=== PATIENT | female | born 1980 | race Caucasian/White ===

== ENCOUNTER → 2016-12-16 | Outpatient (CLI) | payer OTHER ==
[~2016-12-16] MED LIST: DOCU-94 PO; FLNCV PO; ONDA4TAB7 SL
== END ==
LOC: C.PAPS 17:28
PROVIDERS: ATTEND Obstetrics & Gynecology
DX: Z12.4 Encounter for screening for malignant neoplasm of cervix (principal)

== ENCOUNTER 2021-07-12 00:50 | Inpatient (IN) ==
--- NOTE | 2021-07-12 01:15 | Emergency Department Note ---
History of Present Illness General Chief complaint: Flank Pain Stated complaint: ACUTE APPENDICITIS Time Seen by Provider: 07/12/21 00:57 History of Present Illness Maximum Pain Intensity: 6 This is a 40-year-old female presenting to the emergency department for evaluation of acute appendicitis. The patient states that she has had 22 hours of abdominal pain. The patient's discomfort was initially periumbilical but has radiated now into the right lower quadrant. She did go to [facility] ER where blood work was performed along with CT scan. CT scan was positive for acute appendicitis with an 8 mm appendix with periappendiceal inflammation according to the radiology read provided by the patient. The patient does bring a disc of her imaging with her as well as some of her lab work from [place]. I did reach out to [facility] ER, and spoke with the charge nurse. Evidently the patient did have acute appendicitis and as that facility was working to get transport the patient became upset about the possible cost of transportation. [facility] does not have an on-call surgeon tonight, and they did reach out to both [facility] and [facility], each of which may have been able to take the patient to the OR later in the morning, but could not immediately except transf er. The patient did not want to sit in [facility], nor did she want to go to either of these hospitals by ambulance. The patient elected to leave AGAINST MEDICAL ADVICE and drive to this facility for evaluation. There is significant snowstorm occurring at this time tonight with 12+ inches of snow, and despite this the patient drove to this facility skipping over closer hospitals. She rates her current discomfort a 6/10. She did receive Rocephin and Toradol at [place]. She is not vaccinated against COVID. She does have a past history of section. She has not had food in greater than 24 hours. She did have liquids approximately 10 hours ago. Home Medications Medication Instructions Recorded Confirmed Type multivitamin 1 tab PO DAILY 07/12/21 07/12/21 History Allergies Allergy/AdvReac Type Severity Reaction Status Date / Time No Known Allergies Allergy _ Verified 07/12/21 01:24 Past Med/Surg History Medical History No chronic diseases present Surgical History History of section Social History Smoking Status: Former smoker Preferred Language: Jordanian Feels Safe at Home: Yes Review of Systems A total of 10 systems reviewed and were otherwise negative Physical Exam Vital Signs Vital Signs - 24 hr 07/12/21 00:53 07/12/21 02:00 Temperature 37.2 C Temperature Source Temporal Artery Scan Pulse Rate 121 H Pulse Rate [Left Finger] 87 Pulse Rhythm [Left Finger] Regular Pulse Strength [Left Finger] Normal Respiratory Rate 20 20 Respiratory Effort / Characteristics Non-Labored Spontaneous Non-Labored Respiratory Depth Normal Normal Blood Pressure 158/87 H Blood Pressure [Right Arm] 145/92 H Blood Pressure Mean 110 Blood Pressure Mean [Right Arm] 109 Blood Pressure Position [Right Arm] Sitting Pulse Oximetry 96 97 Oxygen Delivery Method Room Air Room Air Sepsis New/Unexplained Change in Mental Status N/A Sepsis Action Taken by Nursing No Action Required VITALS: Vitals are noted on the nurse's note and reviewed by myself. Vital signs stable. GENERAL: Well-developed, well-nourished, white female, who is in no acute distress and resting comfortably. Patient is cooperative with the examination. HEAD: Normocephalic atraumatic. NECK: Supple without nuchal rigidity. No lymphadenopathy. No thyromegaly. Cervical spine is nontender. HEART: Regular rate and rhythm without murmurs gallops or rubs. LUNGS: Clear to auscultation bilaterally without wheezes, rales or rhonchi. No retractions or accessory muscle use. ABDOMEN: Positive normal bowel sounds x 4. Soft with mild right-sided abdominal tenderness. No rebound or guarding. No evidence of peritonitis. MUSCULOSKELETAL: No muscle atrophy, erythema, or edema noted. Full range of motion in all extremities. Course Administered Medications Acetaminophen (Ofirmev) 1,000 mg in 100 mls @ 400 mls/hr IV Q8H PRN PRN Reason: pain Stop: 07/15/21 02:21 Last Admin: 07/12/21 04:28 Dose: 400 mls/hr Documented by: [id number] Potassium Chloride 10 meq/ (Lactated Ringer's) 1,005 mls @ 75 mls/hr IV .[id number] KIRK Stop: 08/11/21 02:29 Last Admin: 07/12/21 03:59 Dose: 75 mls/hr Documented by: [id number] Morphine Sulfate (Morphine Sulfate 4 Mg/Ml 1 Ml Carp\Vial) 3 mg IV Q3H PRN PRN Reason: Pain Stop: 07/26/21 02:21 Last Admin: 07/12/21 02:34 Dose: 3 mg Documented by: [id number] Discontinued Medications Sodium Chloride (Nss 1000ml) 1,000 mls @ 999 mls/hr IV .[id number] KIRK Stop: 07/12/21 02:30 Last Infusion: 07/12/21 03:04 Dose: 0 mls/hr Documented by: [id number] Admin: 07/12/21 01:59 Dose: 999 mls/hr Documented by: [id number] Piperacillin Sod/Tazobactam Sod (Zosyn) 4.5 gm in 120 mls @ 240 mls/hr IV NOW ONE Stop: 07/12/21 01:54 Last Infusion: 07/12/21 02:51 Dose: 0 mls/hr Documented by: [id number] Admin: 07/12/21 01:59 Dose: 240 mls/hr Documented by: [id number] Medical Decision Making Differential Diagnosis Differential diagnosis: Etiologies such as biliary colic, cholecystitis, hepatitis, pancreatitis, cardia c disease, pancreatitis, gastritis, peptic ulcer disease, appendicitis, cystitis, diverticulitis, mesenteric ischemia, inflammatory bowel disease, ileus, bowel obstruction, testicular/adnexal torsion, aortic pathology, shingles, as well as others were considered Laboratory Data Result diagrams: 07/12/21 01:00 07/12/21 01:00 Lab Results 07/12/21 07/12/21 07/12/21 Range/Units 01:00 01:00 01:10 WBC 10.99 H (4.8-10.8) K/uL RBC 4.52 (4.2-5.4) M/uL Hgb 13.7 (12.0-16.0) g/dL Hct 40.2 (37-47) % MCV 88.9 (80-100) fL MCH 30.3 (25-34) pg MCHC 34.1 (32-36) g/dL RDW Std Deviation 43.7 (36.4-46.3) fL RDW Coeff of Bro 13.4 (11.5-14.5) % Plt Count 268 (130-400) K/uL MPV 11.2 H (7.4-10.4) fL Immature Gran % (Auto) 0.1 % Neut % (Auto) 76.9 % Lymph % (Auto) 13.3 % [place] % (Auto) 9.5 % Eos % (Auto) 0.1 % Baso % (Auto) 0.1 % Neut # (Auto) 8.46 H (1.4-6.5) K/uL Lymph # (Auto) 1.46 (1.2-3.4) K/uL [place] # (Auto) 1.04 H (0.11-0.59) K/uL Eos # (Auto) 0.01 (0-0.5) K/uL Baso # (Auto) 0.01 (0-0.2) K/uL Immature Gran # (Auto) 0.01 (0.00-0.02) K/uL Sodium 137 (136-145) mmol/L Potassium 3.4 L (3.5-5.1) mmol/L Chloride 102 (98-107) mmol/L Carbon Dioxide 25 (21-32) mmol/L Anion Gap 10 (3-11) BUN 9 (6-23) mg/dl Creatinine 0.57 L (0.6-1.2) mg/dl Est Cr Clr Drug Dosing 141.6 ml/min Est GFR ( Amer) 133.5 ml/min Est GFR (Non-Af Amer) 115.1 ml/min BUN/Creatinine Ratio 15.8 (10-20) Glucose 135 H (70-99(Fasting)) mg/dl Calcium 8.6 (8.5-10.1) mg/dl Total Bilirubin 0.5 (0.2-1.0) mg/dl AST 10 L (13-39) U/L ALT 11 (7-52) U/L Alkaline Phosphatase 57 (34-104) U/L Total Protein 7.5 (6.0-8.3) gm/dl Albumin 4.3 (3.4-5.0) gm/dl Globulin 3.2 (2.5-4.0) gm/dl Albumin/Globulin Ratio 1.3 (0.9-2) Lipase 11 (11-82) U/L HCG, Qual (Negative) SARS-CoV-2, RNA, NAAT POSITIVE A* (NEGATIVE) 07/12/21 Range/Units 01:10 WBC (4.8-10.8) K/uL RBC (4.2-5.4) M/uL Hgb (12.0-16.0) g/dL Hct (37-47) % MCV (80-100) fL MCH (25-34) pg MCHC (32-36) g/dL RDW Std Deviation (36.4-46.3) fL RDW Coeff of Bro (11.5-14.5) % Plt Count (130-400) K/uL MPV (7.4-10.4) fL Immature Gran % (Auto) % Neut % (Auto) % Lymph % (Auto) % [place] % (Auto) % Eos % (Auto) % Baso % (Auto) % Neut # (Auto) (1.4-6.5) K/uL Lymph # (Auto) (1.2-3.4) K/uL [place] # (Auto) (0.11-0.59) K/uL Eos # (Auto) (0-0.5) K/uL Baso # (Auto) (0-0.2) K/uL Immature Gran # (Auto) (0.00-0.02) K/uL Sodium (136-145) mmol/L Potassium (3.5-5.1) mmol/L Chloride (98-107) mmol/L Carbon Dioxide (21-32) mmol/L Anion Gap (3-11) BUN (6-23) mg/dl Creatinine (0.6-1.2) mg/dl Est Cr Clr Drug Dosing ml/min Est GFR ( Amer) ml/min Est GFR (Non-Af Amer) ml/min BUN/Creatinine Ratio (10-20) Glucose (70-99(Fasting)) mg/dl Calcium (8.5-10.1) mg/dl Total Bilirubin (0.2-1.0) mg/dl AST (13-39) U/L ALT (7-52) U/L Alkaline Phosphatase (34-104) U/L Total Protein (6.0-8.3) gm/dl Albumin (3.4-5.0) gm/dl Globulin (2.5-4.0) gm/dl Albumin/Globulin Ratio (0.9-2) Lipase (11-82) U/L HCG, Qual Negative (Negative) SARS-CoV-2, RNA, NAAT (NEGATIVE) MDM Narrative Physical exam and history were performed. Nursing notes, EMR, and Medication List were personally reviewed. Patient appears to have acute appendicitis on imaging from another hospital. The patient did leave [facility] emergency department AGAINST MEDICAL ADVICE to come to this facility. IV access was established and labs were obtained. She was made n.p.o. and gently hydrated in the ER. She did receive Rocephin and Toradol while at [place]. COVID swab was performed. The patient's blood work is as above and was reviewed. She does not have a significantly elevated white blood cell count, gross anemia, bandemia, or significant electrolyte imbalance. COVID swab is POSITIVE. The case was discussed with the on-call surgical team, who did evaluate the patient here in the emergency department. Please see their dictation for further patient course, plan, disposition. The chart was completed utilizing [employer] Speech Voice Recognition Software. Grammatical errors, random word insertions, pronoun errors, and incomplete sentences are an occasional consequence of this system due to software limitations, ambient noise, and hardware issues. Any formal questions or concerns about the content, text, or information contained within the body of this dictation should be directly addressed to the provider for clarification. . Impression & Plan Acute appendicitis, COVID-19 Discharge Plan Visit Data Chief Complaint: Flank Pain Stated Complaint: ACUTE APPENDICITIS ED Provider: Abhay Aguilar ED Midlevel Provider: Néstor Head Discharge Problem: Acute appendicitis, COVID-19 Patient Disposition: Being Evaluated by Surgeon Discharge Instructions Interventions: ED Discharge Assessment Last Done: 07/12/21 03:02
[2021-07-12 01:22] LABS: Basophils # (auto) 0.01 K/uL (0-0.2); Basophils % (auto) 0.1 %; Eosinophils # (auto) 0.01 K/uL (0-0.5); Eosinophils % (auto) 0.1 %; Hematocrit (blood only) 40.2 % (37-47); Hemoglobin 13.7 g/dL (12.0-16.0); Immature Granulocytes # (auto) 0.01 K/uL (0.00-0.02); Immature Granulocytes % (auto) 0.1 %; Lymphocytes # (auto) 1.46 K/uL (1.2-3.4); Lymphocytes % (auto) 13.3 %; Mean Corpuscular Hemoglobin 30.3 pg (25-34); Mean Corpuscular Hgb Conc 34.1 g/dL (32-36); Mean Corpuscular Volume 88.9 fL (80-100); Mean Platelet Volume 11.2 fL (7.4-10.4); Monocytes # (auto) 1.04 K/uL (0.11-0.59); Monocytes % (auto) 9.5 %; Neutrophils # (auto) 8.46 K/uL (1.4-6.5); Neutrophils % (auto) 76.9 %; Platelet Count 268 K/uL (130-400); RDW Coefficient of Variation 13.4 % (11.5-14.5); RDW Standard Deviation 43.7 fL (36.4-46.3); Red Blood Count 4.52 M/uL (4.2-5.4); White Blood Count 10.99 K/uL (4.8-10.8)
[2021-07-12] MEDS ORDERED: PIPERACILL/TAZOBAC CONSULT ACTIVE PRN ×2 (01:25→03:03)
[2021-07-12] MEDS ORDERED: PIPERACILLIN/TAZOBACTAM 4.5 GM/120 ML BAG IV ONE (01:25)
[2021-07-12] MEDS ORDERED: SODIUM CHLORIDE 0.9% 1000ML 1,000 ML IV SCH (01:30)
[2021-07-12 01:39] LABS: Albumin Globulin Ratio 1.3 (0.9-2); Albumin Level 4.3 gm/dl (3.4-5.0); BUN Creatinine Ratio 15.8 (10-20); Bilirubin,Total 0.5 mg/dl (0.2-1.0); Calcium 8.6 mg/dl (8.5-10.1); Creatinine Clr Calc Pharmacy 141.6 ml/min; Est GFR (African American) 133.5 ml/min; Est GFR (Non-African American) 115.1 ml/min; Globulin 3.2 gm/dl (2.5-4.0); Potassium 3.4 mmol/L (3.5-5.1); Total Protein 7.5 gm/dl (6.0-8.3)
[2021-07-12 01:47] LABS: Pregnancy Test, Serum Negative (Negative)
--- NOTE | 2021-07-12 02:17 | History & Physical Report ---
Date of Service July 12, 2021 Assessment & Plan (1) Acute appendicitis: Plan: Due to the patient's clinical presentation and imaging findings at [facility] she will be admitted to the hospital and we will proceed as follows: We will implement n.p.o. status We will hydrate gently with IV fluids supplementing her potassium Antiemetics will be provided Analgesics will be provided We will maintain the patient on antibiotics. The treating clinician emergency department has ordered a dose of Zosyn and we will continue this medicine Due to the patient's positive COVID status we will order appropriate isolation precautions Due to acute appendicitis we will plan on performing an appendectomy. I have consented the patient for laparoscopic, possible open appendectomy. I have outlined the risks, benefits, and alternatives with the patient and she wished to proceed. Additional recommendations to be forthcoming based on operative findings as well as the patient's postoperative course Will utilize SCDs for DVT prevention. We will avoid chemical means to the planned surgery She will be a level 1 full code History of Present Illness Chief Complaint: Abdominal pain Primary Care Provider: Anita Bello This is a 40-year-old female who presented to the emergency department secondary to abdominal pain. The patient notes that approximately 24 hours ago she developed periumbilical abdominal pain. She said over the course of the following day the pain is shifted to the right lower quadrant. Patient denies any fevers, shakes, chills. She has had nausea without vomiting. The patient notes that she has had a prior but has had no other abdominal surgeries. She says she has not had any oral intake in approximately 12 hours. Because of her symptomatology she presented to [facility] where she underwent a CT scan of the abdomen and pelvis. This study showed that patient had an appendix dilated at approximately 8 mm in size. There is periappendiceal inflammatory changes noted. The patient was reportedly administered intravenous Rocephin while at [facility]. As general surgery services were not available at [facility] attempts were made to transfer the patient to [place], however they apparently could not accept the patient until 8:00 AM. Because of this the patient reportedly left [facility] and drove by private vehicle to [facility] for further care. Labs were performed at [facility] emergency department. CBC revealed white blood cell count had a slight elevation at 10.9. Hemoglobin, hematocrit, and platelet count were all within normal range. A chemistry profile showed sodium was 137. Potassium is slightly low at 3.4. BUN and creatinine were noted to be 9 and 0.5, both which are not elevated. There is no significant elevation of LFTs. Lipase was not elevated. test was noted to be negative. While [facility] the patient did undergo testing for COVID-19 which came back positive. Concerning COVID-19 symptoms the patient is afebrile. She denies any diarrhea. She denies any cough or shortness of breath. Patient reports that she is not vaccinated. At the time of my interview the patient was resting comfortably in bed and she was in no distress. Allergies Allergy/AdvReac Type Severity Reaction Status Date / Time No Known Allergies Allergy _ Verified 07/12/21 01:24 Home Medications Medication Instructions Recorded Confirmed Type multivitamin 1 tab PO DAILY 07/12/21 07/12/21 History Past Med/Surg History Medical History No chronic diseases present Surgical History History of section Social History Smoking Status: Former smoker Hx Alcohol Use: No Hx Substance Use: No Preferred Language: Estonian Communication Ability: Effective See Wheeler Required: No Beliefs That Will Affect Care: None Current Living Situation: Spouse and Family Feels Safe at Home: Yes Safety Concerns: Feels Safe At This Time Review of Systems Constitutional: no fever and no chills Eyes: no diplopia Ear, Nose, Mouth, Throat: no ear pain Respiratory: no cough and no dyspnea Cardiovascular: no chest pain Gastrointestinal: + abdominal pain and + nausea; no vomiting Genitourinary: no dysuria Musculoskeletal: no back pain Integumentary: no rash Neurologic: no localized weakness Physical Exam Constitutional: well developed and well nourished; no acute distress Eyes: no conjunctival abnormality ENMT: Ears: no hearing impairment and no external ear abnormality Mouth: no oropharynx abnormality Neck: trachea midline Respiratory: normal respiratory effort, lungs clear to auscultation Cardiovascular: Rate/Rhythm: regular rate and regular rhythm Gastrointestinal (Abdomen): Abdomen is soft and nondistended. Bowel sounds are present. There is pain noted with palpation which is greatest in the right lower quadrant over McBurney's point. Musculoskeletal: No calf tenderness Skin: no rashes Neurologic: moves all extremities Psychiatric: A+Ox3, euthymic affect Results & Data Results & Data ([facility]) Vital Signs (Past 12 Hours) Vital Signs Temp Pulse Pulse Resp BP BP Pulse Ox 07/12/21 02:00 87 20 145/92 H 97 07/12/21 00:53 37.2 C 121 H 20 158/87 H 96 Supervising Physician Co-Signing Physician Notes -Dr. Tellez-patient discussed with Shane Gillespie, I saw the patient in the emergency room-examination and reportedly on CT scan has appendicitis We have not been able to review the film as it is not been downloaded into our system yet She is scheduled for laparoscopic possible open appendectomy this morning IV antibiotics and IV analgesics ordered PG Care Time/CCT Total # of Minutes Spent Total Time Spent with Patient: Total time spent is greater than 50% in coordination of care (as documented) at patient's floor/unit and/or counseling patient: Coding Level of Care Code INT OBSERVATION CARE 70M LVL 3 Diagnoses Acute appendicitis K35.80
[2021-07-12] MEDS ORDERED: MoRPHine SULFATE 4 MG/ML 1 ML CARP\\VIAL IV PRN (02:22)
[2021-07-12] MEDS ORDERED: ONDANSETRON INJ 2 MG/ML 2 ML VIAL IV PRN ×3 (02:22→12:41)
[2021-07-12] MEDS ORDERED: ACETAMINOPHEN 1,000 MG/100 ML VIAL IV PRN (02:22)
[2021-07-12] MEDS ORDERED: POTASSIUM CHLORIDE 10 MEQ in LACTATED RINGER'S 1,000 ML IV SCH (02:30)
[2021-07-12 02:58] LABS: Appearance Urine Clear (Clear); Bilirubin Urine Negative (Negative); Blood Urine Negative (Negative); Color Urine Yellow; Glucose Urine UA Negative (Negative); Ketones Urine Trace (Negative); Leukocyte Esterase Urine Negative (Negative); Nitrite Urine Negative (Negative); Protein Urine Negative (Negative); Specific Gravity Urine 1.028 (1.000-1.030); Urobilinogen Urine Negative (Negative)
[2021-07-12] MEDS ORDERED: HYDROmorphone INJ 0.5 MG/0.5 ML SYR IV PRN ×2 (05:32→12:41)
[2021-07-12] MEDS ORDERED: PIPERACILLIN/TAZOBACTAM 3.375 GM in DEXTROSE 5% 100 ML IV SCH (08:00)
[2021-07-12] MEDS ORDERED: ROCURONIUM BROMIDE 10 MG/ML 5 ML VIAL IV ONE (08:04)
[2021-07-12] MEDS ORDERED: SUCCINYLCHOLINE CHLORIDE 20 MG/ML 10 ML VIAL IV ONE (08:04)
[2021-07-12] MEDS ORDERED: PROPOFOL IV EMULSION 10 MG/ML 20 ML VIAL IV ONE (08:04)
[2021-07-12] MEDS ORDERED: fentaNYL citrate 100 MCG/2 ML VIAL ONE (08:04)
[2021-07-12] MEDS ORDERED: DEXAMETHASONE SOD INJ 4 MG/ML VIAL ONE (08:04)
[2021-07-12] MEDS ORDERED: ONDANSETRON INJ 2 MG/ML 2 ML VIAL ONE (08:04)
[2021-07-12] MEDS ORDERED: SUGAMMADEX SODIUM 200 MG/2 ML VIAL IV ONE (08:34)
[2021-07-12] MEDS ORDERED: ATROPINE SULFATE 0.1 MG/ML 10ML SYR IV PRN (09:50)
[2021-07-12] MEDS ORDERED: ePHEDrine sulfate 50 MG/ML AMP IV PRN (09:50)
--- NOTE | 2021-07-12 09:50 | Anesthesiology Consultation ---
Date of Service July 12, 2021 Assessment & Plan Chart Review Chart Review: Acceptable Risk for Surgery and Patient NOT seen in Pre Admission Testing Consults Requested none ASA [id number] Proposed Anesthesia Anesthesia Type: General Risk / Benefits Reviewed With: PT / POA / Parent / Guardian, Accepts Plan and Informed Consent Obtained History Surgery Operation Date: 07/12/21 10:10 Proposed Procedures p Laparoscopic Appendectomy - Nick Tellez MD, FACS Height/Weight Height: 5 ft 5 in Weight: 87 kg Allergies Allergy/AdvReac Type Severity Reaction Status Date / Time No Known Allergies Allergy _ Verified 07/12/21 01:24 Medications Home Medications Medication Instructions Recorded Confirmed Last Taken multivitamin 1 tab PO DAILY 07/12/21 07/12/21 07/11/21 Active Medications Generic Name Dose Route Start Last Admin Trade Name Freq PRN Reason Stop Dose Admin Acetaminophen 1,000 mg in 100 mls @ 400 mls/hr 07/12/21 02:22 07/12/21 05:41 Ofirmev IV 07/15/21 02:21 Infused Q8H PRN Infusion pain Potassium Chloride 10 meq/ 1,005 mls @ 75 mls/hr 07/12/21 02:30 07/12/21 03:59 Lactated Ringer's IV 08/11/21 02:29 75 mls/hr .[id number] KIRK Administration Piperacillin Sod/Tazobactam 115 mls @ 28.75 mls/hr 07/12/21 08:00 07/12/21 08:18 Sod 3.375 gm/ Dextrose IV 07/22/21 07:59 28.8 mls/hr Q8H KIRK Administration Protocol Past Medical History Medical History No chronic diseases present Exercise / Class Metabolic Activity II 4-5 Yardwork/Stairs/Walk up hill Past Surgical History Surgical History History of section Past Anesthesia History No Hx of Anesthesia Complications and No Family Hx of Anesthesia Complications History of PONV No Hx of PONV and No Hx of Motion Sickness Social History Smoking Status: Former smoker Hx Alcohol Use: No Hx Substance Use: No Physical Exam Vital Signs Last Vital Signs Temp 37.2 C 07/12/21 00:53 Pulse 96 H 07/12/21 09:19 Resp 20 07/12/21 09:19 BP 152/107 H 07/12/21 09:19 Pulse Ox 97 07/12/21 09:19 ENMT Mouth: no dentition abnormality Thyromental Distance: > or= 3.5 Finger Breadths Mallampati Class: II Neck normal visual inspection Respiratory normal respiratory effort Auscultation: lungs clear to auscultation bilaterally Cardiovascular Rate/Rhythm: regular rate and regular rhythm Psychiatric Orientation: alert Testing Laboratory Results 07/12/21 01:00 07/12/21 01:00 Urine Color Yellow 07/12/21 02:36 Urine Appearance Clear (Clear) 07/12/21 02:36 Urine pH 6.0 (4.5-7.5) 07/12/21 02:36 Ur Specific [place] 1.028 (1.000-1.030) 07/12/21 02:36 Urine Protein Negative (Negative) 07/12/21 02:36 Urine Glucose (UA) Negative (Negative) 07/12/21 02:36 Urine Ketones Trace (Negative) H 07/12/21 02:36 Urine Nitrite Negative (Negative) 07/12/21 02:36 Ur Leukocyte Esterase Negative (Negative) 07/12/21 02:36 07/12/21 02:36 POC Ur Test NEG
[2021-07-12] MEDS ORDERED: BUPIVACAINE 0.5 % 5 MG/1 ML MPF 30ML VIAL INJ ONE (10:32)
--- NOTE | 2021-07-12 10:43 | Post Operative Brief Note ---
PG Immediate Post Op with CF Date of Surgery July 12, 2021 Pre & Post Diagnosis Operation Date: 07/12/21 10:10 Pre-Op Diagnosis: Acute Appendicits Post-Op Diagnosis: Acute Appendicits, exudate, chronic adhesions I identified the patient and participated in the time-out.: Yes Procedure Operation Date: 07/12/21 10:10 Actual Procedures p Laparoscopic Appendectomy(Not Applicable) - Nick Tellez MD, FACS Lysis of adhesions Surgeon Nick Tellez MD, FACS Hydraulic Modeling Engineer Azael Chin Estimated Blood Loss 10 Findings Consistent with Post-Op Diagnosis Patient had acute appendicitis with an exudate and evidence of 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 appendix
--- NOTE | 2021-07-12 11:05 | Operative Report (OR) ---
DATE OF OPERATION: 07/12/2021. NAME OF OPERATION: Laparoscopic appendectomy with lysis of adhesions. PREOPERATIVE DIAGNOSIS: Acute appendicitis. POSTOPERATIVE DIAGNOSIS: Acute appendicitis with adhesions. STAFF SURGEON: Nick Tellez MD. PAPER BAG INSPECTOR: Diya Chin PA-C. ANESTHESIA: General. DESCRIPTION OF PROCEDURE: The patient was brought in the operating room and placed on the operating table in supine position. Pneumatic stockings and orogastric tube were placed. Her abdomen was prep ped and draped in the usual fashion. A 0.5% plain Marcaine was used to anesthetize all incisions. I nitial incision was made just in the upper part of the umbilicus, carrying dissection down to the fas richardson, placing a Veress needle producing pneumoperitoneum, placing an 11 mm port. Under visualization, a 5 mm port was placed in the suprapubic area and then 12 mm port in the left lower quadrant. My as sistant helped with prepping, draping, removal of the appendix and closure of the wounds. The appendix was identified. It was severely inflamed with an exudate. The base of the appendix was dissected free and then transected using an Endo-NATALIIA stapler. Then, the mesoappendix was identified , transected using the Endo-NATALIIA stapler. Irrigation and hemostasis was maintained. Appendix was winnie dorothy in an Endobag and removed through the left lower quadrant port site. All ports were then removed . Fascia at the umbilicus and left lower quadrant closed using 0 Vicryl suture. The skin was reappr oximated using subcuticular 4-0 Monocryl, 5-0 Prolene at the umbilicus for the skin, Dermabond in the suprapubic area for the skin and then Steri-Strips in the left lower quadrant. The patient was arteaga sferred to recovery room in stable condition. 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 Job ID: [id number]
--- NOTE | 2021-07-12 11:33 | Anesthesiology Progress Note ---
Date of Service July 12, 2021 Anesthesia Post Procedure Vital Signs Vital Signs: Temp Pulse Pulse Pulse Resp BP BP 07/12/21 11:25 80 15 133/82 07/12/21 11:15 36.1 C L 83 14 137/90 07/12/21 11:05 87 15 139/68 07/12/21 10:55 36.4 C L 79 12 115/83 07/12/21 10:45 36.4 C L 78 18 121/69 07/12/21 09:19 96 H 20 152/107 H 07/12/21 08:22 84 16 134/79 07/12/21 04:00 98 H 18 128/78 07/12/21 02:00 87 20 145/92 H 07/12/21 00:53 37.2 C 121 H 20 158/87 H Pulse Ox 07/12/21 11:25 94 07/12/21 11:15 96 07/12/21 11:05 100 07/12/21 10:55 100 07/12/21 10:45 100 07/12/21 09:19 97 07/12/21 08:22 97 07/12/21 04:00 94 07/12/21 02:00 97 07/12/21 00:53 96 Pain Intensity Right Lower Abdomen: Pain Intensity: 5 Transfer of Care Handoff Completed per policy Notes Mental Status: alert / awake / arousable Patient Amnestic to Procedure: Yes Nausea / Vomiting: adequately controlled Pain: adequately controlled Airway Patency, RR, SpO2: stable & adequate BP & HR: stable & adequate Hydration State: stable & adequate Anesthetic Complications: no major complications apparent
[2021-07-12] MEDS: fentaNYL citrate 100 MCG/2 ML VIAL IV PRN ×2 (11:52→11:59)
[2021-07-12] MEDS ORDERED: IBUPROFEN 600 MG TAB PO PRN (12:41)
[2021-07-12] MEDS ORDERED: PROMETHAZINE HCL 12.5 MG in SODIUM CHLORIDE 0.9% 50 ML IV PRN (12:41)
[2021-07-12] MEDS ORDERED: ACETAMINOPHEN 325 MG TAB PO PRN (12:41)
[2021-07-12] MEDS: HYDROCODONE/ACETAMOPHEN 5/325MG TAB PO PRN ×3 (13:41→22:49)
[2021-07-12] MEDS: LACTATED RINGER'S 1,000 ML IV SCH (15:22)
[2021-07-12 15:54] LABS: Hemoglobin 12.7 g/dL (12.0-16.0)
[2021-07-13] MEDS: HYDROCODONE/ACETAMOPHEN 5/325MG TAB PO PRN ×4 (00:26→12:35)
[2021-07-13 07:13] LABS: Basophils # (auto) 0.01 K/uL (0-0.2); Basophils % (auto) 0.1 %; Eosinophils # (auto) 0.04 K/uL (0-0.5); Eosinophils % (auto) 0.5 %; Hematocrit (blood only) 36.1 % (37-47); Immature Granulocytes # (auto) 0.01 K/uL (0.00-0.02); Immature Granulocytes % (auto) 0.1 %; Lymphocytes # (auto) 1.62 K/uL (1.2-3.4); Lymphocytes % (auto) 20.7 %; Mean Corpuscular Hemoglobin 29.6 pg (25-34); Mean Corpuscular Hgb Conc 33.2 g/dL (32-36); Mean Corpuscular Volume 89.1 fL (80-100); Mean Platelet Volume 11.2 fL (7.4-10.4); Monocytes # (auto) 0.68 K/uL (0.11-0.59); Monocytes % (auto) 8.7 %; Neutrophils # (auto) 5.47 K/uL (1.4-6.5); Neutrophils % (auto) 69.9 %; Platelet Count 291 K/uL (130-400); RDW Coefficient of Variation 13.5 % (11.5-14.5); RDW Standard Deviation 44.3 fL (36.4-46.3); Red Blood Count 4.05 M/uL (4.2-5.4); White Blood Count 7.83 K/uL (4.8-10.8)
[2021-07-13] MEDS: LACTATED RINGER'S 1,000 ML IV SCH (07:39)
[2021-07-13 07:45] LABS: Albumin Globulin Ratio 1.3 (0.9-2); Albumin Level 3.8 gm/dl (3.4-5.0); Bilirubin,Total 0.5 mg/dl (0.2-1.0); Calcium 8.5 mg/dl (8.5-10.1); Creatinine Clr Calc Pharmacy 137.7 ml/min; Est GFR (African American) 131.2 ml/min; Est GFR (Non-African American) 113.2 ml/min; Globulin 2.9 gm/dl (2.5-4.0); Phosphorus 2.7 mg/dl (2.5-4.9); Potassium 3.4 mmol/L (3.5-5.1); Total Protein 6.7 gm/dl (6.0-8.3)
[2021-07-13] MEDS ORDERED: HEPARIN SOD 5,000 UNIT/0.5 ML VIAL SQ SCH (09:00)
--- NOTE | 2021-07-13 09:30 | Discharge Summary (DS) ---
DATE OF DISCHARGE: 07/13/2021. DATE OF ADMISSION: 07/12/2021. PRINCIPAL DIAGNOSIS: Acute appendicitis. PROCEDURE: The patient underwent laparoscopic appendectomy. HISTORY OF PRESENT ILLNESS: The patient is a 40-year-old female presenting to the Emergency Room the early hours of the morning 07/12/2021 from [facility]. Apparently, she did presented to [facility] and was diagnosed with acute appendicitis and then they suggested she be transferred either to [place] or [place] by ambulance. The patient chose to come by car to [facility]. On 07/12/2021, she was taken to the operating room where she underwent laparoscopic appendecto my, which she did tolerate well. She did test positive for COVID, and was kept in isolation. She snider s done relatively well, has some left lower quadrant pain from the wound, but felt stable for dischar ge home to be followed in the surgical clinic within 1-2 weeks. Job ID: [id number]
== END 2021-07-13 14:04 | disposition home or self-care (01) | DRG 341 ==
LOC: ED 00:50 → EDINP 00:50